=== PATIENT | male | born 1975 | race Caucasian/White ===

== ENCOUNTER → 2016-11-07 | Outpatient (CLI) | payer BC | LOC: BMCIMAGING 11:54 | PROVIDERS: ATTEND Internal Medicine | DX: M25.521 Pain in right elbow (principal); M79.601 Pain in right arm ==

== ENCOUNTER → 2017-08-09 | Outpatient (CLI) | payer BC | LOC: FIMAGING 16:05 | PROVIDERS: ATTEND Surgery | DX: R10.31 Right lower quadrant pain (principal) ==

== ENCOUNTER 2018-05-19 06:27 | Emergency (ER) | payer BC ==
[2018-05-19] MEDS ORDERED: KETOROLAC 30 MG/1 ML SDV IM ONE (07:25)
--- NOTE | 2018-05-19 07:30 | EDPHY ---
H & P Time Seen by Provider: 05/19/18 06:54 HPI/ROS: HPI Neck pain. 43-year-old male by private vehicle. This patient reports that he was playing golf yesterday. He does not recall a specific thick event, but he states that last night he developed soreness and stiffness in the right lateral aspect of his neck extending down into the muscle body of his trapezius. He reports it is more difficult to turn his head to the right versus the left. He denies any loss of sensation, numbness, weakness in his upper and lower extremities. No bowel or bladder incontinence. He has not had a fever. No headache. Denies any significant traumatic event. No other complaints. ROS: Constitutional: No fever, no chills. No weakness. Musculoskeletal: Intermittent right-sided lower back pain for the last 2 months after doing hot yoga, as above. No myalgias or arthralgias. Skin: No rashes. Neurological: No headache. No focal weakness or altered sensation. Past medical history: No significant past medical history. Social history: Nonsmoker. with children. Here by himself. No alcohol. Physical Exam: General Appearance: Alert, no distress. This patient is responding to questions appropriately and in full sentences. This patient appears well- hydrated and well-nourished. Eyes: Pupils equal and round no pallor or injection. No lid edema, erythema or injection. Head: Normocephalic atraumatic Neck: No midline cervical, thoracic tenderness on palpation. He does have some vague mild tenderness on palpation of the right sided trapezius muscle extending up into the lower lateral right neck. No soft tissue changes. No erythema, warmth, ecchymosis, edema noted. He is neurologically intact in all myotomes in dermatomes of the bilateral upper extremities. He does not have significant pain on flexion of his neck. Neurological: Motor sensory function is grossly intact. Cranial nerves are normal. Gait is normal. Skin: Warm and dry, no rashes. Musculoskeletal: As above. Extremities are symmetrical. All joints range without pain or impingement. Psychiatric: No agitation. No depression. Database: EKG: Imaging: Cervical spine x-ray series: Negative for fracture, subluxation, dislocation. Interpreted by me. Procedures: Emergency department course: Triage vital signs reviewed and are normal. He is afebrile. He appears well. He has no contraindications to NSAIDs. No history of renal dysfunction or peptic ulcer disease. He will be given intramuscular Toradol for pain relief. He is currently driving. Plain film x-rays of the cervical spine to be obtained. Patient consents to workup. 8:10 p.m., patient re-evaluated, resting comfortably at this time. Repeat neurologic Assessment is nonfocal. Results of his x-rays discussed. He is feeling better. He feels comfortable being discharged. I feel he is safe to go home. His presentation is consistent with a cervical strain with possible torticollis. He will be prescribed a 3 day course of Flexeril. He can resume taking ibuprofen tonight. Follow-up and return to emergency department precautions reviewed with him. All of his questions were answered. He was discharged from the emergency department in good condition. Differential Diagnosis: The differential diagnosis on this patient includes but is not limited to cervical strain, torticollis. Meningitis, encephalitis, cervical spine fracture , subluxation, dislocation unlikely. This represents a partial list of diagnoses considered. These considerations are based on history, physical exam , past history, reassessment and diagnostic testing. Smoking Status: Never smoked Constitutional: Initial Vital Signs Temperature (C) 36.8 C 05/19/18 06:32 Heart Rate 63 05/19/18 06:32 Respiratory Rate 16 05/19/18 06:32 Blood Pressure 118/86 H 05/19/18 06:32 O2 Sat (%) 96 05/19/18 06:32 O2 Delivery Mode Room Air Allergies/Adverse Reactions: No Known Allergies Allergy (Unverified 05/19/18 06:37) Home Medications: Medication Instructions Recorded Cyclobenzaprine [Flexeril 10 MG 10 mg PO TID #9 tab 05/19/18 (*)] Departure - Departure Disposition: Home, Routine, Self-Care Clinical Impression: Cervical strain Condition: Good Instructions: Cervical Strain (ED), Spasmodic Torticollis (ED) Additional Instructions: Read and follow provided instructions. Follow-up with your primary care physician on Monday for re-evaluation as discussed. You can resume taking ibuprofen tonight before bed. Ibuprofen dosin mg every 6 hours with meals for the next 3 days only. Take only as needed for pain. Take muscle relaxer medication as prescribed for the next 2-3 days. This medication may make you drowsy. Do not drive while taking this medication. Return to the emergency department for worsening symptoms, worsening pain, loss of sensation or weakness in your extremities, fever, headache or other serious concerns. Referrals: Javier Payne MD [Primary Care Provider] - As per Instructions Prescriptions: Cyclobenzaprine [Flexeril 10 MG (*)] 10 mg PO TID #9 tab
[2018-05-19 08:26] VITALS: BP 116/77
== END 2018-05-19 08:42 | disposition home or self-care (01) ==
DX: S16.1XXA Strain of muscle, fascia and tendon at neck level, initial encounter (principal); M50.321 Other cervical disc degeneration at C4-C5 level; M50.322 Other cervical disc degeneration at C5-C6 level; Y93.53 Activity, golf
CPT/HCPCS: J1885